=== PATIENT | male | born 1980 | race Caucasian/White ===

== ENCOUNTER → 2018-02-08 | Outpatient (CLI) | payer OTHER ==
[~2018-02-08] MED LIST: NEXIUM 40MG40 MG PO; ZOFRAN ODT4 MG PO
== END ==
LOC: MHCPAIN 10:29
DX: G89.29 Other chronic pain (principal); M47.817 Spondylosis without myelopathy or radiculopathy, lumbosacral region; M54.16 Radiculopathy, lumbar region; M53.3 Sacrococcygeal disorders, not elsewhere classified; M96.1 Postlaminectomy syndrome, not elsewhere classified
CPT/HCPCS: G0463

== ENCOUNTER → 2018-02-09 | Outpatient (CLI) | payer OTHER | LOC: MHCPAIN 07:36 | DX: M47.817 Spondylosis without myelopathy or radiculopathy, lumbosacral region (principal); M54.16 Radiculopathy, lumbar region | CPT/HCPCS: J1040; Q9967 ==

== ENCOUNTER → 2018-03-15 | Outpatient (CLI) | payer OTHER | LOC: MHCPAIN 11:18 | DX: G89.29 Other chronic pain (principal); M47.817 Spondylosis without myelopathy or radiculopathy, lumbosacral region; M54.16 Radiculopathy, lumbar region; M53.3 Sacrococcygeal disorders, not elsewhere classified; M96.1 Postlaminectomy syndrome, not elsewhere classified | CPT/HCPCS: G0463 ==

== ENCOUNTER → 2018-06-13 | Outpatient (CLI) | payer OTHER | LOC: MHCPAIN 15:03 | DX: G89.29 Other chronic pain (principal); M47.817 Spondylosis without myelopathy or radiculopathy, lumbosacral region; M54.16 Radiculopathy, lumbar region; M53.3 Sacrococcygeal disorders, not elsewhere classified; M96.1 Postlaminectomy syndrome, not elsewhere classified | CPT/HCPCS: G0463 ==

== ENCOUNTER → 2018-10-25 | Outpatient (CLI) | payer OTHER | LOC: MHCPAIN 15:10 | DX: G89.29 Other chronic pain (principal); M47.817 Spondylosis without myelopathy or radiculopathy, lumbosacral region; M54.16 Radiculopathy, lumbar region; M53.3 Sacrococcygeal disorders, not elsewhere classified; M96.1 Postlaminectomy syndrome, not elsewhere classified | CPT/HCPCS: G0463 ==

== ENCOUNTER → 2018-11-02 | Outpatient (CLI) | payer OTHER | LOC: MHCPAIN 11:29 | DX: M47.817 Spondylosis without myelopathy or radiculopathy, lumbosacral region (principal); M54.16 Radiculopathy, lumbar region | CPT/HCPCS: J1100; Q9967 ==

== ENCOUNTER → 2018-11-15 | Outpatient (CLI) | payer OTHER | LOC: MHCPAIN 08:14 | DX: G89.29 Other chronic pain (principal); M47.817 Spondylosis without myelopathy or radiculopathy, lumbosacral region; M54.16 Radiculopathy, lumbar region; M53.3 Sacrococcygeal disorders, not elsewhere classified; M96.1 Postlaminectomy syndrome, not elsewhere classified | CPT/HCPCS: G0463 ==

== ENCOUNTER → 2018-11-23 | Outpatient (CLI) | payer OTHER | LOC: MHCPAIN 07:57 | DX: M47.817 Spondylosis without myelopathy or radiculopathy, lumbosacral region (principal); M54.16 Radiculopathy, lumbar region ==

== ENCOUNTER → 2018-11-29 | Outpatient (CLI) | payer OTHER | LOC: MHCPAIN 12:37 | DX: G89.29 Other chronic pain (principal); M47.817 Spondylosis without myelopathy or radiculopathy, lumbosacral region; M54.16 Radiculopathy, lumbar region; M53.3 Sacrococcygeal disorders, not elsewhere classified; M96.1 Postlaminectomy syndrome, not elsewhere classified | CPT/HCPCS: G0463 ==

== ENCOUNTER → 2018-12-21 | Outpatient (CLI) | payer OTHER | LOC: MHCPAIN 07:32 | DX: M47.817 Spondylosis without myelopathy or radiculopathy, lumbosacral region (principal); M54.16 Radiculopathy, lumbar region | CPT/HCPCS: J1100; J2250; J3010 ==

== ENCOUNTER → 2019-02-12 | Outpatient (CLI) | payer OTHER | LOC: MHCPAIN 09:46 | DX: M47.817 Spondylosis without myelopathy or radiculopathy, lumbosacral region (principal); M53.3 Sacrococcygeal disorders, not elsewhere classified | CPT/HCPCS: G0463 ==

== ENCOUNTER → 2019-10-11 | Outpatient (CLI) | payer OTHER | LOC: COL.RAD 12:05 | DX: M50.222 Other cervical disc displacement at C5-C6 level (principal); E23.6 Other disorders of pituitary gland; G93.89 Other specified disorders of brain; H47.099 Other disorders of optic nerve, not elsewhere classified, unspecified eye ==

== ENCOUNTER 2019-11-05 07:24 | Outpatient (CLI) | payer OTHER ==
[~2019-11-05] VITALS: Ht 182.9 cm; Wt 113.1 kg
[2019-11-05] VITALS (8 sets, daily range): BP systolic 115–136; BP diastolic 73–80; PULSE 61–76
[~2019-11-05 07:24] MED LIST changes: +LIPITOR20 MG PO; +NEURONTIN100 MG/CAP PO
[2019-11-05 08:59] LABS: GLUCOSE,CSF 52 mg/dL (40-70); TOTAL PROTEIN,CSF 101 mg/dL (15-45)
--- NOTE | 2019-11-05 10:45 | NUR ---
discharge instructions given to pt.Pt verbalizes understanding.Pt escorted out by this nurse.
[2019-11-05 11:05] LABS: CSF APPEARANCE CLEAR; CSF COLOR COLORLESS; CSF POLYMORPHONUCLEAR 25 % (0-6); CSF RBC 3 /mm3 (0-0)
[2019-11-05 11:06] LABS: CSF MONONUCLEAR 75 % (70-100)
== END 2019-11-05 10:50 | disposition home or self-care (01) ==
LOC: COL.RAD
PROVIDERS: Psychiatry & Neurology Neurology
DX: G43.009 Migraine without aura, not intractable, without status migrainosus (principal); E23.6 Other disorders of pituitary gland; H43.393 Other vitreous opacities, bilateral

== ENCOUNTER 2019-12-10 06:58 | Emergency (ER) | payer OTHER ==
[~2019-12-10] VITALS: Ht 185.4 cm; Wt 111.4 kg
[2019-12-10 07:01] VITALS: BP 130/82; TEMP 97.6
[2019-12-10 08:23] VITALS: PULSE 84
== END 2019-12-10 08:23 | disposition home or self-care (01) ==
LOC: COL.ER 06:58
DX: S83.91XA Sprain of unspecified site of right knee, initial encounter (principal); M23.8X1 Other internal derangements of right knee; W54.1XXA Struck by dog, initial encounter
CPT/HCPCS: L1846